=== PATIENT | female | born 1975 | race Caucasian/White ===

== ENCOUNTER 2020-02-05 22:09 | Inpatient (IN) ==
[2020-02-05] MEDS ORDERED: SODIUM CHLORIDE 0.9% 1,000 ML IV STA (22:27)
[2020-02-05 22:37] LABS: Basophils # 0.1 10*3/uL (0.0-0.2); Basophils % 0.5 % (0.0-0.8); Eosinophils % 0.3 % (0.00-10.9); Hematocrit 49.3 VOL% (35.7-47.0); Hemoglobin 15.3 GM/DL (12.0-16.0); Immature Granulocytes % 1.6 %; Immature Granulocytes Absolute 0.21 #; Lymphocytes # 3.8 10*3/uL (1.4-4.0); Lymphocytes % 29.8 % (21.3-54.2); Mean Corpuscular Volume 98.8 FL (87-102); Mean Platelet Volume 9.9 FL (9.6-12.0); Monocytes % 17.8 % (1.7-12.7); NRBC # 0.02 10*3/uL; Platelet Count 368 T/CUMM (130-400); Red Blood Count 4.99 MC/CUMM (3.8-5.5); Red Cell Distribution Width 12.8 % (9.3-17.3); White Blood Count 12.9 T/CUMM (4-12)
[2020-02-05 22:44] LABS: Alanine Aminotransferase 153 U/L (13-56); Albumin 3.8 G/DL (3.4-5.0); Alkaline Phosphatase 67 U/L (45-117); Aspartate Amino Transferase 214 U/L (0-37); Bilirubin,Total < 0.39 MG/DL (0.2-1.0); Blood Urea Nitrogen 9 MG/DL (7-18); Calcium 8.2 MG/DL (8.5-10.1); Glucose 250 MG/DL (74-106); Total Protein 8.1 G/DL (6.4-8.3)
[2020-02-05 22:45] LABS: Estimated Glom Filtration Rate 0 ML/MIN
[2020-02-05 22:58] LABS: Apearance,Urine CLEAR (Clear); Bilirubin,Urine Negative (Negative); Blood, Urine Negative (Negative); Glucose,Urine (UA) Negative (Negative); Hyaline Casts,Urine 7 /LPF (0-3); Ketones,Urine 80 mg/dL (Negative); Mucus,Urine Occasional /LPF (Occasional); Nitrite,Urine Negative (Negative); Protein,Urine Negative; RBC,Urine <1 /HPF (0-4); Squamous Epithelial Cell,Urine Occasional /HPF (0-10); Urine Color Straw (Yellow); Urine Specific Gravity 1.012 (1.001-1.035); Urine Urobilinogen < 2.0 EU/DL (0.2-1.0); WBC,Urine <1 /HPF (0-6)
[2020-02-05 23:36] LABS: Barbiturates Screen,Urine Negative (Negative); Benzodiazepines Screen,Urine Negative (Negative); Cannabinoid Screen,Urine Negative (Negative); Opiate Screen,Urine Negative (Negative); Phencyclidine Screen,Urine Negative (Negative)
[2020-02-05 23:45] LABS: Band Neutrophils 5 % (0-10); Lymphocytes 32 % (20-55); Platelet Estimate Normal; Polychromasia Few; Segmented Neutrophils 44 % (50-85); Total Cells Counted 100
[2020-02-05] MEDS ORDERED: NOREPINEPHRINE 4 MG/4 ML VIAL IV ONE ×2 (23:45→23:48)
[2020-02-05] MEDS ORDERED: NOREPINEPHRINE 8 MG in SODIUM CHLORIDE 0.9% 242 ML IV STA (23:46)
[2020-02-06 00:06] LABS: ABG HCO3 4.8 MMOL/L (20-26); ABG Oxygen Saturation 96.9 % (95-100); ABG PCO2 37.4 MM HG (35-48); ABG PO2 170.1 MM HG (80-95); ABG TCO2 5.9 MMOL/L (23-27)
[2020-02-06 00:07] LABS: ABG Base Excess -31.5 MMOL/L (-2.5-2.5)
[2020-02-06] MEDS ORDERED: PROMETHAZINE 25 MG/1 ML VIAL IM PRN (00:07)
[2020-02-06] MEDS ORDERED: ALBUTEROL 2.5 MG/3 ML NEB RESP TX PRN (00:07)
[2020-02-06] MEDS ORDERED: ONDANSETRON 4 MG/2 ML VIAL IV PRN (00:07)
[2020-02-06 00:10] LABS: ABG PH 6.724 (7.35-7.45)
[2020-02-06] MEDS ORDERED: SODIUM CHLORIDE 0.45% 1,000 ML IV SCH (00:30)
[2020-02-06] MEDS ORDERED: SODIUM BICARBONATE 50 MEQ/50 ML VIAL IV ONE ×5 (00:37→09:07)
[2020-02-06] MEDS ORDERED: HEPARIN/NACL 0.9% 2 UNITS/ML 500 ML IV ONE (00:49)
[2020-02-06] MEDS ORDERED: ETOMIDATE 20 MG/10 ML VIAL IV ONE (01:04)
[2020-02-06] MEDS ORDERED: ROCURONIUM 100 MG/10 ML VIAL IV ONE (01:05)
[2020-02-06] MEDS: SODIUM BICARB INJ 150 MEQ in DEXTROSE 5% 850 ML IV SCH ×2 (02:14→13:01)
[2020-02-06] MEDS: PHENYLEPHRINE DRIP 40 MG/250 ML PREMIX IV PRN ×2 (02:15→07:16)
[2020-02-06] MEDS ORDERED: SODIUM CHLORIDE 0.9% 1,000 ML IV ONE (02:49)
[2020-02-06] MEDS ORDERED: PHENYLEPHRINE DRIP 40 MG/250 ML PREMIX IV ONE (03:00)
[2020-02-06] MEDS ORDERED: SODIUM BICARB INJ 150 MEQ in DEXTROSE 5% 850 ML IV SCH ×3 (03:00→07:30)
[2020-02-06] MEDS ORDERED: EPINEPHrine 1 MG/ML VIAL ONE (03:10)
[2020-02-06 03:23] LABS: ABG Base Excess -21.3 MMOL/L (-2.5-2.5); ABG HCO3 9.5 MMOL/L (20-26); ABG Oxygen Saturation 98.5 % (95-100); ABG PCO2 52.3 MM HG (35-48); ABG TCO2 11.4 MMOL/L (23-27)
[2020-02-06 03:27] LABS: ABG PH 6.955 (7.35-7.45)
[2020-02-06] MEDS ORDERED: NOREPINEPHRINE 8 MG in SODIUM CHLORIDE 0.9% 242 ML IV STA (04:30)
[2020-02-06 05:21] LABS: Basophils % 0.1 % (0.0-0.8); Eosinophils % 0.1 % (0.00-10.9); Hematocrit 43.4 VOL% (35.7-47.0); Hemoglobin 13.4 GM/DL (12.0-16.0); Immature Granulocytes % 4.2 %; Immature Granulocytes Absolute 1.35 #; Lymphocytes # 2.8 10*3/uL (1.4-4.0); Lymphocytes % 8.7 % (21.3-54.2); Mean Corpuscular HGB Conc 30.9 GM/DL (32-36); Mean Corpuscular Volume 100.2 FL (87-102); Mean Platelet Volume 10.1 FL (9.6-12.0); Monocytes % 13.1 % (1.7-12.7); NRBC # 0.07 10*3/uL; Neutrophils % 73.8 % (38.7-73.9); Platelet Count 249 T/CUMM (130-400); Red Blood Count 4.33 MC/CUMM (3.8-5.5); Red Cell Distribution Width 12.9 % (9.3-17.3); White Blood Count 31.8 T/CUMM (4-12)
[2020-02-06 05:22] LABS: ABG Base Excess -28.1 MMOL/L (-2.5-2.5); ABG HCO3 6.3 MMOL/L (20-26); ABG Oxygen Saturation 98.5 % (95-100); ABG TCO2 5.2 MMOL/L (23-27)
[2020-02-06 05:24] LABS: ABG PH 6.899 (7.35-7.45)
[2020-02-06 05:47] LABS: Alanine Aminotransferase 209 U/L (13-56); Albumin 2.6 G/DL (3.4-5.0); Alkaline Phosphatase 69 U/L (45-117); Aspartate Amino Transferase 382 U/L (0-37); Band Neutrophils 4 % (0-10); Bilirubin,Total < 0.39 MG/DL (0.2-1.0); Blood Urea Nitrogen 15 MG/DL (7-18); Calcium 6.4 MG/DL (8.5-10.1); Estimated Glom Filtration Rate 31 ML/MIN; Glucose 156 MG/DL (74-106); Hypochromasia Slight; Lymphocytes 13 % (20-55); Osmolality,Calculated 291.7 MOS/KG (273-304); Platelet Estimate Adequate; Segmented Neutrophils 73 % (50-85); Total Cells Counted 100; Total Protein 5.8 G/DL (6.4-8.3)
[2020-02-06] MEDS ORDERED: methylPREDNISolone SOD SUC 125 MG/2 ML VIAL IV ONE (06:21)
[2020-02-06] MEDS ORDERED: methylPREDNISolone SOD SUC 125 MG/2 ML VIAL ONE (06:25)
[2020-02-06] MEDS ORDERED: NOREPINEPHRINE 16 MG in SODIUM CHLORIDE 0.9% 234 ML IV PRN (07:30)
[2020-02-06] MEDS ORDERED: PHENYLEPHRINE INJ 160 MG in SODIUM CHLORIDE 0.9% 234 ML IV PRN (07:30)
[2020-02-06 07:50] LABS: ABG Base Excess -26.7 MMOL/L (-2.5-2.5); ABG HCO3 6.8 MMOL/L (20-26); ABG Oxygen Saturation 98.7 % (95-100); ABG PCO2 25.8 MM HG (35-48); ABG TCO2 5.5 MMOL/L (23-27)
[2020-02-06 07:57] LABS: ABG PH 6.944 (7.35-7.45)
[2020-02-06 08:06] VITALS: BP 82/48
[2020-02-06] MEDS ORDERED: ENOXAPARIN 30 MG/0.3 ML SYRINGE SUBCUT SCH (09:00)
[2020-02-06] MEDS ORDERED: PANTOPRAZOLE 40 MG VIAL IV SCH (09:00)
[2020-02-06] MEDS ORDERED: CALCIUM GLUCONATE 2,000 MG in SODIUM CHLORIDE 0.9% 100 ML IV ONE (10:00)
[2020-02-06] MEDS ORDERED: VASOPRESSIN 100 UNITS in SODIUM CHLORIDE 0.9% 95 ML IV PRN (10:30)
== END 2020-02-06 19:54 | disposition expired | DRG 917 ==
LOC: EDUNIT# → EDBD → N.ED 22:09 → SUATTDRO 02-06 00:07 → N.EDINP 02-06 00:07 → N.ICU 02-06 00:51
PROVIDERS: ADMIT Surgery; ATTEND Internal Medicine